=== PATIENT | female | born 2000 | race Caucasian/White ===

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

== ENCOUNTER 2018-03-05 17:25 | Emergency (ER) | payer MEDICAID ==
[~2018-03-05] VITALS: Ht 157.5 cm; Wt 120.0 kg
[2018-03-05 17:36] VITALS: Ht 157.5 cm; Wt 120.0 kg
[2018-03-05] MEDS ORDERED: VOLTAREN75 MG PO (18:13)
[2018-03-05 19:16] VITALS: BP 137/90
== END 2018-03-05 19:17 | disposition home or self-care (01) ==
LOC: D.ER 17:25
DX: L03.311 Cellulitis of abdominal wall (principal); I10 Essential (primary) hypertension; F17.200 Nicotine dependence, unspecified, uncomplicated

== ENCOUNTER 2018-03-27 15:45 | Emergency (ER) | payer MEDICAID ==
[~2018-03-27] VITALS: Ht 157.5 cm; Wt 121.8 kg
[~2018-03-27 15:45] MED LIST: VOLTAREN75 MG PO
[2018-03-27 15:49] VITALS: Ht 157.5 cm; Wt 121.8 kg
[2018-03-27 16:31] LABS: BASOPHILS 0.1 % (0-2); EOSINOPHILS 1.5 % (0-7); HEMATOCRIT 40.5 % (36.0-48.0); HEMOGLOBIN 13.8 g/dL (12-16); IMMATURE GRANULOCYTES 0.2 % (0-5); LYMPHOCYTES 12.2 % (15-50); MCH 28.8 pg (26.0-34.0); MCHC 34.1 g/dL (31.0-37.0); MCV 84.4 fL (80.0-100.0); MEAN PLATELET VOLUME 10.7 fL (7.4-10.4); MONOCYTES 1.9 % (2-11); NEUTROPHILS 84.1 % (40-80); PLATELET COUNT 283 10x3/uL (130-400); RDW 13.4 % (11.5-14.5); WBC 12.3 10x3/uL (4.8-10.8)
[2018-03-27 16:45] LABS: ALBUMIN 3.4 g/dL (3.4-5.0); ALKALINE PHOSPHATASE 94 U/L (46-116); ALT (SGPT) 27 U/L (10-68); BILIRUBIN - TOTAL 0.17 mg/dL (0.2-1.3); CALC OSMOLALITY 280 mosm/kg (275-300); CALCIUM 8.5 mg/dL (8.5-10.1); CARBON DIOXIDE 24.1 mmol/L (21.0-32.0); CHLORIDE - SERUM 104 mmol/L (98-107); CREATININE - SERUM 0.8 mg/dL (0.6-1.3); GLUCOSE 187 mg/dL (74-106); POTASSIUM - SERUM 3.9 mmol/L (3.5-5.1); PROTEIN - SERUM 7.4 g/dL (6.4-8.2); SODIUM 139 mmol/L (136-145); UREA NITROGEN 6 mg/dL (7-18); eGFR NON AFRICAN AMERICAN > 90 mL/min (90-120)
[2018-03-27] MEDS ORDERED: FLOVENT HFA 11012 GM INH (16:57)
[2018-03-27] MEDS ORDERED: VENTOLIN HFA18 GM INH (16:57)
[2018-03-27] MEDS ORDERED: ZITHROMAX TRI-500 MG PO (16:57)
[2018-03-27 17:11] VITALS: BP 140/71
== END 2018-03-27 17:17 | disposition home or self-care (01) ==
LOC: D.ER 15:45
PROVIDERS: Family Medicine
DX: J45.909 Unspecified asthma, uncomplicated (principal); R73.9 Hyperglycemia, unspecified; R05 Cough; I27.20 Pulmonary hypertension, unspecified; F17.200 Nicotine dependence, unspecified, uncomplicated

== ENCOUNTER 2018-06-03 20:06 | Emergency (ER) | payer MEDICARE ==
[~2018-06-03] VITALS: Ht 157.5 cm; Wt 114.5 kg
[~2018-06-03 20:06] MED LIST changes: +FLOVENT HFA 11012 GM INH; +VENTOLIN HFA18 GM INH; +ZITHROMAX TRI-500 MG PO
[2018-06-03 20:26] VITALS: Ht 157.5 cm; Wt 114.5 kg
[2018-06-03] MEDS ORDERED: ABILIFY10 MG PO (20:27)
[2018-06-03] MEDS ORDERED: ATARAX 25 MG TA25 MG PO (20:28)
[2018-06-03] MEDS ORDERED: LEXAPRO20 MG PO (20:28)
[2018-06-03] MEDS ORDERED: COREG6.25 MG PO (20:28)
[2018-06-03 21:07] LABS: BASOPHILS 0.3 % (0-2); EOSINOPHILS 2.5 % (0-7); HEMATOCRIT 40.2 % (36.0-48.0); HEMOGLOBIN 13.2 g/dL (12-16); IMMATURE GRANULOCYTES 0.3 % (0-5); LYMPHOCYTES 27.3 % (15-50); MCH 28.5 pg (26.0-34.0); MCHC 32.8 g/dL (31.0-37.0); MCV 86.8 fL (80.0-100.0); MEAN PLATELET VOLUME 10.4 fL (7.4-10.4); MONOCYTES 4.8 % (2-11); NEUTROPHILS 64.8 % (40-80); PLATELET COUNT 299 10x3/uL (130-400); RBC 4.63 10x6/uL (4.00-5.40); RDW 13.5 % (11.5-14.5); WBC 11.2 10x3/uL (4.8-10.8)
[2018-06-03 21:14] LABS: APTT 33.8 SECONDS (22.8-39.4); INR 1.05 (0.85-1.17); PROTIME 13.4 SECONDS (11.6-15.0)
[2018-06-03 21:20] LABS: ALBUMIN 3.6 g/dL (3.4-5.0); ALKALINE PHOSPHATASE 99 U/L (46-116); ALT (SGPT) 27 U/L (10-68); BILIRUBIN - TOTAL 0.15 mg/dL (0.2-1.3); CALC OSMOLALITY 275 mosm/kg (275-300); CALCIUM 9.3 mg/dL (8.5-10.1); CARBON DIOXIDE 28.3 mmol/L (21.0-32.0); CHLORIDE - SERUM 102 mmol/L (98-107); CREATININE - SERUM 0.7 mg/dL (0.6-1.3); GLUCOSE 99 mg/dL (74-106); POTASSIUM - SERUM 3.5 mmol/L (3.5-5.1); PROTEIN - SERUM 7.6 g/dL (6.4-8.2); SODIUM 139 mmol/L (136-145); UREA NITROGEN 7 mg/dL (7-18); eGFR NON AFRICAN AMERICAN > 90 mL/min (90-120)
[2018-06-03 21:31] LABS: CKMB 0.5 U/L (0.0-3.6); CREATINE KINASE 126 UL (21-215); MAGNESIUM - SERUM 2.1 mg/dL (1.8-2.4); TROPONIN-I < 0.017 ng/mL (0.000-0.060)
[2018-06-03 22:07] VITALS: BP 123/61
== END 2018-06-03 23:00 | disposition left against medical advice (07) ==
LOC: D.ER 20:06
PROVIDERS: Family Medicine
DX: R07.9 Chest pain, unspecified (principal); Z76.5 Malingerer [conscious simulation]; I10 Essential (primary) hypertension; F17.200 Nicotine dependence, unspecified, uncomplicated; R00.0 Tachycardia, unspecified

== ENCOUNTER 2018-06-07 00:51 | Emergency (ER) | payer MEDICARE ==
[~2018-06-07] VITALS: Ht 157.5 cm; Wt 90.9 kg
[~2018-06-07 00:51] MED LIST changes: +ABILIFY10 MG PO; +ATARAX 25 MG TA25 MG PO; +COREG6.25 MG PO; +LEXAPRO20 MG PO
[2018-06-07 01:08] VITALS: Ht 157.5 cm; Wt 90.9 kg
[2018-06-07 02:21] VITALS: BP 136/80
== END 2018-06-07 02:23 | disposition home or self-care (01) ==
LOC: D.ER 00:51
DX: F41.9 Anxiety disorder, unspecified (principal); Y04.2XXA Assault by strike against or bumped into by another person, initial encounter; Y93.89 Activity, other specified; Y92.89 Other specified places as the place of occurrence of the external cause; M79.602 Pain in left arm; M25.562 Pain in left knee; R00.0 Tachycardia, unspecified

== ENCOUNTER 2018-06-13 17:49 | Emergency (ER) | payer MEDICARE ==
[~2018-06-13] VITALS: Ht 157.5 cm; Wt 111.1 kg
[2018-06-13 17:53] VITALS: Ht 157.5 cm; Wt 111.1 kg
[2018-06-13 19:12] LABS: BASOPHILS 0.3 % (0-2); EOSINOPHILS 3.2 % (0-7); HEMATOCRIT 42.1 % (36.0-48.0); IMMATURE GRANULOCYTES 0.2 % (0-5); LYMPHOCYTES 22.8 % (15-50); MCH 28.6 pg (26.0-34.0); MCHC 33.3 g/dL (31.0-37.0); MCV 85.9 fL (80.0-100.0); MEAN PLATELET VOLUME 10.9 fL (7.4-10.4); MONOCYTES 3.9 % (2-11); NEUTROPHILS 69.6 % (40-80); PLATELET COUNT 312 10x3/uL (130-400); RDW 13.4 % (11.5-14.5); WBC 10.8 10x3/uL (4.8-10.8)
[2018-06-13] MEDS ORDERED: COREG6.25 MG PO (19:18)
[2018-06-13 20:11] LABS: CALC OSMOLALITY 277 mosm/kg (275-300); CALCIUM 9.3 mg/dL (8.5-10.1); CARBON DIOXIDE 26.5 mmol/L (21.0-32.0); CHLORIDE - SERUM 103 mmol/L (98-107); CKMB 0.4 U/L (0.0-3.6); CREATINE KINASE 85 UL (21-215); CREATININE - SERUM 0.8 mg/dL (0.6-1.3); GLUCOSE 107 mg/dL (74-106); POTASSIUM - SERUM 3.5 mmol/L (3.5-5.1); SODIUM 140 mmol/L (136-145); UREA NITROGEN 9 mg/dL (7-18); eGFR NON AFRICAN AMERICAN > 90 mL/min (90-120)
[2018-06-13 20:13] LABS: TROPONIN-I < 0.017 ng/mL (0.000-0.060)
[2018-06-13 20:20] VITALS: BP 127/68
== END 2018-06-13 20:20 | disposition home or self-care (01) ==
LOC: D.ER 17:49
PROVIDERS: Family Medicine
DX: I27.20 Pulmonary hypertension, unspecified (principal)

== ENCOUNTER 2018-06-26 14:04 | Emergency (ER) | payer MEDICARE | END 2018-06-26 14:30 | disposition left against medical advice (07) | LOC: D.ER 14:04 | DX: T62.91XA Toxic effect of unspecified noxious substance eaten as food, accidental (unintentional), initial encounter (principal); X58.XXXA Exposure to other specified factors, initial encounter ==

== ENCOUNTER 2018-07-24 15:27 | Emergency (ER) | payer MEDICARE ==
[~2018-07-24] VITALS: Ht 157.5 cm; Wt 111.4 kg
[2018-07-24 15:41] VITALS: Ht 157.5 cm; Wt 111.4 kg
[2018-07-24] MEDS ORDERED: TORADOL10 MG PO (19:33)
[2018-07-24 20:15] VITALS: BP 137/66
== END 2018-07-24 20:15 | disposition home or self-care (01) ==
LOC: D.ER 15:27
DX: S83.8X2A Sprain of other specified parts of left knee, initial encounter (principal); X58.XXXA Exposure to other specified factors, initial encounter; Y93.89 Activity, other specified; Y92.89 Other specified places as the place of occurrence of the external cause

== ENCOUNTER → 2018-08-01 12:37 | Outpatient (CLI) | payer MEDICARE ==
[2018-07-24 15:41] VITALS: BMI 44.9
[~2018-08-01 12:37] MED LIST changes: +TORADOL10 MG PO
== END | disposition home or self-care (01) ==
LOC: D.MRI 12:37
DX: M25.562 Pain in left knee (principal)

== ENCOUNTER 2018-09-01 05:16 | Emergency (ER) | payer MEDICARE ==
[~2018-09-01] VITALS: Ht 157.5 cm; Wt 111.4 kg
[2018-09-01 05:21] VITALS: Ht 157.5 cm; Wt 111.4 kg
[2018-09-01] MEDS ORDERED: LOPRESSOR25 MG PO (05:22)
[2018-09-01] MEDS ORDERED: ABILIFY10 MG PO (05:22)
[2018-09-01 08:37] VITALS: BP 116/84
== END 2018-09-01 08:38 | disposition home or self-care (01) ==
LOC: D.ER 05:16
DX: T78.1XXA Other adverse food reactions, not elsewhere classified, initial encounter (principal); X58.XXXA Exposure to other specified factors, initial encounter; I10 Essential (primary) hypertension; F17.200 Nicotine dependence, unspecified, uncomplicated

== ENCOUNTER 2018-11-03 06:30 | Day surgery (SDC) | payer MEDICARE ==
[2018-10-31 09:08] LABS: BASOPHILS 0.3 % (0-2); HEMATOCRIT 39.3 % (36.0-48.0); HEMOGLOBIN 13.4 g/dL (12-16); IMMATURE GRANULOCYTES 0.3 % (0-5); LYMPHOCYTES 31.2 % (15-50); MCH 28.4 pg (26.0-34.0); MCHC 34.1 g/dL (31.0-37.0); MCV 83.3 fL (80.0-100.0); MEAN PLATELET VOLUME 9.9 fL (7.4-10.4); MONOCYTES 5.8 % (2-11); NEUTROPHILS 59.4 % (40-80); PLATELET COUNT 315 10x3/uL (130-400); RBC 4.72 10x6/uL (4.00-5.40); RDW 13.7 % (11.5-14.5); WBC 9.8 10x3/uL (4.8-10.8)
[2018-10-31 09:20] LABS: CALC OSMOLALITY 277 mosm/kg (275-300); CARBON DIOXIDE 26.2 mmol/L (21.0-32.0); CHLORIDE - SERUM 104 mmol/L (98-107); CREATININE - SERUM 0.7 mg/dL (0.6-1.3); GLUCOSE 78 mg/dL (74-106); POTASSIUM - SERUM 4.1 mmol/L (3.5-5.1); SODIUM 139 mmol/L (136-145); UREA NITROGEN 14 mg/dL (7-18); eGFR NON AFRICAN AMERICAN > 90 mL/min (90-120)
[~2018-11-03] VITALS: Ht 157.5 cm; Wt 109.8 kg
[~2018-11-03 06:30] MED LIST changes: +CLARITIN 10 MG10 MG PO; +DULERA 100 MCG8.8 GM INH; +LOPRESSOR25 MG PO
[2018-11-03 08:26] LABS: HCG URINE NEGATIVE (NEGATIVE)
[2018-11-03 08:32] VITALS: BP 126/70; Ht 157.5 cm; Wt 109.8 kg
--- NOTE | 2018-11-03 12:33 | NUR ---
FIRE SAFETY ASSESSMENT :1
[2018-11-03] MEDS ORDERED: HYDROCODON-ACE1 EAC2 PO (16:14)
--- NOTE | 2018-11-03 16:20 | NUR ---
PATIENT AMBULATES TO BATHROOM WITH WALKER, MAINTAINING TOUCH-TOE WEIGHT BEARING STATUS. DENIES DIZZINESS, NO UNSTEADINESS NOTED. VOIDS IN TOILET WITHOUT DIFFICULTY. RIGHT WRIST PIV DC'D WITH TIP INTACT, PATIENT DRESSING IN PERSONAL CLOTHING WITH ASSISTANCE
--- NOTE | 2018-11-03 16:45 | NUR ---
DISCHARGE INSTRUCTIONS REVIEWED WITH PATIENT AND MOTHER, DISCHARGED HOME VIA WHEELCHAIR TO PRIVATE VEHICLE WITH MOTHER
== END 2018-11-03 16:45 | disposition home or self-care (01) ==
LOC: D.OPS 06:30 → D.PAN 07:30 → D.OPS 08:30
PROVIDERS: ATTEND Orthopaedic Surgery
DX: M92.8 Other specified juvenile osteochondrosis (principal); M23.42 Loose body in knee, left knee; S83.012A Lateral subluxation of left patella, initial encounter; X58.XXXA Exposure to other specified factors, initial encounter; M65.862 Other synovitis and tenosynovitis, left lower leg; M94.262 Chondromalacia, left knee; Z01.812 Encounter for preprocedural laboratory examination

== ENCOUNTER 2018-11-03 23:58 | Emergency (ER) | payer MEDICARE ==
[~2018-11-03] VITALS: Ht 157.5 cm; Wt 104.5 kg
[~2018-11-03 23:58] MED LIST changes: +HYDROCODON-ACE1 EAC2 PO
[2018-11-04 00:02] VITALS: Ht 157.5 cm; Wt 104.5 kg
[2018-11-04 01:15] VITALS: BP 140/71
== END 2018-11-04 01:15 | disposition home or self-care (01) ==
LOC: D.ER 23:58
DX: M25.562 Pain in left knee (principal)

== ENCOUNTER 2018-11-10 23:04 | Emergency (ER) | payer MEDICARE ==
[~2018-11-10] VITALS: Ht 157.5 cm; Wt 109.1 kg
[2018-11-10 23:06] VITALS: Ht 157.5 cm; Wt 109.1 kg
[2018-11-10] MEDS ORDERED: HYDROCODON-ACE1 EAC2 PO (23:41)
[2018-11-11 00:25] VITALS: BP 119/61
== END 2018-11-11 00:25 | disposition home or self-care (01) ==
LOC: D.ER 23:04
DX: M96.89 Other intraoperative and postprocedural complications and disorders of the musculoskeletal system (principal)

== ENCOUNTER 2018-11-29 03:49 | Emergency (ER) | payer MEDICARE ==
[~2018-11-29] VITALS: Ht 157.5 cm; Wt 109.1 kg
[2018-11-29 03:53] VITALS: Ht 157.5 cm; Wt 109.1 kg
[2018-11-29] MEDS ORDERED: LEXAPRO20 MG PO (03:55)
[2018-11-29 04:17] LABS: APPEARANCE CLEAR (CLEAR); BILIRUBIN NEGATIVE (NEGATIVE); COLOR YELLOW (YELLOW); GLUCOSE NEGATIVE (NEGATIVE); HCG URINE NEGATIVE (NEGATIVE); KETONE SMALL mg/dL (NEGATIVE); NITRITE NEGATIVE (NEGATIVE); PROTEIN NEGATIVE (NEGATIVE); UROBILINOGEN NORMAL (NORMAL)
[2018-11-29 05:20] LABS: ALBUMIN 3.3 g/dL (3.4-5.0); ALKALINE PHOSPHATASE 100 U/L (46-116); ALT (SGPT) 19 U/L (10-68); AMYLASE - SERUM 43 U/L (25-115); BILIRUBIN - TOTAL 0.09 mg/dL (0.2-1.3); CALC OSMOLALITY 278 mosm/kg (275-300); CALCIUM 8.6 mg/dL (8.5-10.1); CARBON DIOXIDE 28.9 mmol/L (21.0-32.0); CHLORIDE - SERUM 104 mmol/L (98-107); CREATININE - SERUM 0.8 mg/dL (0.6-1.3); GLUCOSE 90 mg/dL (74-106); LIPASE 97 U/L (73-393); POTASSIUM - SERUM 3.6 mmol/L (3.5-5.1); PROTEIN - SERUM 6.9 g/dL (6.4-8.2); SODIUM 139 mmol/L (136-145); UREA NITROGEN 15 mg/dL (7-18); eGFR NON AFRICAN AMERICAN > 90 mL/min (90-120)
[2018-11-29 05:25] LABS: BASOPHILS 0.2 % (0-2); EOSINOPHILS 2.8 % (0-7); HEMATOCRIT 36.2 % (36.0-48.0); HEMOGLOBIN 11.9 g/dL (12-16); IMMATURE GRANULOCYTES 0.3 % (0-5); MCH 27.9 pg (26.0-34.0); MCHC 32.9 g/dL (31.0-37.0); MEAN PLATELET VOLUME 10.2 fL (7.4-10.4); MONOCYTES 5.7 % (2-11); PLATELET COUNT 331 10x3/uL (130-400); RBC 4.26 10x6/uL (4.00-5.40); RDW 13.6 % (11.5-14.5); WBC 11.6 10x3/uL (4.8-10.8)
[2018-11-29 06:12] VITALS: BP 121/71
[2018-11-29] MEDS ORDERED: NAPROSYN500 MG PO (06:36)
== END 2018-11-29 06:42 | disposition home or self-care (01) ==
LOC: D.ER 03:49
PROVIDERS: Family Medicine
DX: R10.9 Unspecified abdominal pain (principal); N94.6 Dysmenorrhea, unspecified; N92.6 Irregular menstruation, unspecified

== ENCOUNTER 2018-12-17 03:51 | Emergency (ER) | payer MEDICARE ==
[~2018-12-17 03:51] MED LIST changes: +NAPROSYN500 MG PO
[2018-12-17 03:57] VITALS: BMI 42.1
[2018-12-17 04:16] LABS: BASOPHILS 0.4 % (0-2); EOSINOPHILS 2.8 % (0-7); HEMATOCRIT 37.4 % (36.0-48.0); HEMOGLOBIN 12.3 g/dL (12-16); IMMATURE GRANULOCYTES 0.2 % (0-5); LYMPHOCYTES 36.4 % (15-50); MCH 27.8 pg (26.0-34.0); MCHC 32.9 g/dL (31.0-37.0); MCV 84.6 fL (80.0-100.0); MEAN PLATELET VOLUME 9.8 fL (7.4-10.4); MONOCYTES 5.7 % (2-11); NEUTROPHILS 54.5 % (40-80); PLATELET COUNT 292 10x3/uL (130-400); RBC 4.42 10x6/uL (4.00-5.40); RDW 13.9 % (11.5-14.5); WBC 9.9 10x3/uL (4.8-10.8)
[2018-12-17 04:24] LABS: HCG SERUM NEGATIVE (NEGATIVE)
[2018-12-17 04:30] LABS: ALBUMIN 3.4 g/dL (3.4-5.0); ALKALINE PHOSPHATASE 106 U/L (46-116); ALT (SGPT) 20 U/L (10-68); CALC OSMOLALITY 281 mosm/kg (275-300); CALCIUM 8.6 mg/dL (8.5-10.1); CARBON DIOXIDE 27.4 mmol/L (21.0-32.0); CHLORIDE - SERUM 104 mmol/L (98-107); CREATININE - SERUM 0.6 mg/dL (0.6-1.3); GLUCOSE 128 mg/dL (74-106); POTASSIUM - SERUM 3.7 mmol/L (3.5-5.1); PROTEIN - SERUM 7.3 g/dL (6.4-8.2); SODIUM 140 mmol/L (136-145); UREA NITROGEN 15 mg/dL (7-18); eGFR NON AFRICAN AMERICAN > 90 mL/min (90-120)
[2018-12-17] MEDS ORDERED: TRANEXAMIC ACI650 MG PO (05:19)
[2018-12-17 05:55] VITALS: BP 141/97
[2018-12-18] MEDS ORDERED: LOPRESSOR25 MG PO (21:54)
== END 2018-12-17 05:56 | disposition home or self-care (01) ==
LOC: D.ER 03:51
PROVIDERS: Family Medicine
DX: N93.8 Other specified abnormal uterine and vaginal bleeding (principal)

== ENCOUNTER 2018-12-18 20:19 | Emergency (ER) | payer MEDICARE ==
[~2018-12-18 20:19] MED LIST changes: +TRANEXAMIC ACI650 MG PO
[2018-12-18 20:25] VITALS: BMI 42.1
--- NOTE | 2018-12-18 21:12 | NUR ---
DR ROMERO NOTIFIED AND REVIEWED PT's BEHAVIOR AND ASSESSMENT RESULTS, PT IS A LW RISK PER DR ROMERO. DR ROMERO STATED TO GIVE RESOURCES TO PT AT TIME OF DISCHARGE. NO FURTHER ORDERS AT THIS TIME, RESOURCES REVIEWED WITH PT AND SHE VERBALIZED UNDERSTANDING.
[2018-12-18 21:20] LABS: ALBUMIN 3.3 g/dL (3.4-5.0); ALKALINE PHOSPHATASE 102 U/L (46-116); ALT (SGPT) 16 U/L (10-68); BILIRUBIN - TOTAL 0.11 mg/dL (0.2-1.3); CALC OSMOLALITY 278 mosm/kg (275-300); CALCIUM 8.4 mg/dL (8.5-10.1); CARBON DIOXIDE 26.7 mmol/L (21.0-32.0); CHLORIDE - SERUM 104 mmol/L (98-107); CREATININE - SERUM 0.7 mg/dL (0.6-1.3); GLUCOSE 101 mg/dL (74-106); POTASSIUM - SERUM 3.5 mmol/L (3.5-5.1); SODIUM 140 mmol/L (136-145); UREA NITROGEN 12 mg/dL (7-18); eGFR NON AFRICAN AMERICAN > 90 mL/min (90-120)
[2018-12-18 21:31] LABS: CKMB 0.6 U/L (0.0-3.6); CREATINE KINASE 97 UL (21-215); MAGNESIUM - SERUM 1.7 mg/dL (1.8-2.4); PRO BNP 185 pg/mL (0-125); TROPONIN-I < 0.017 ng/mL (0.000-0.060)
[2018-12-18 21:32] LABS: INR 1.08 (0.85-1.17); PROTIME 13.5 SECONDS (11.6-15.0)
[2018-12-18 21:35] LABS: BASOPHILS 0.3 % (0-2); EOSINOPHILS 2.5 % (0-7); HEMATOCRIT 36.1 % (36.0-48.0); HEMOGLOBIN 11.9 g/dL (12-16); IMMATURE GRANULOCYTES 0.3 % (0-5); LYMPHOCYTES 29.2 % (15-50); MCH 28.1 pg (26.0-34.0); MCV 85.1 fL (80.0-100.0); MEAN PLATELET VOLUME 10.3 fL (7.4-10.4); MONOCYTES 5.5 % (2-11); NEUTROPHILS 62.2 % (40-80); PLATELET COUNT 301 10x3/uL (130-400); RBC 4.24 10x6/uL (4.00-5.40); WBC 10.8 10x3/uL (4.8-10.8)
[2018-12-18] MEDS ORDERED: LOPRESSOR25 MG PO (21:54)
[2018-12-18 22:13] VITALS: BP 138/86
== END 2018-12-18 22:09 | disposition home or self-care (01) ==
LOC: D.ER 20:19
PROVIDERS: Family Medicine
DX: I27.20 Pulmonary hypertension, unspecified (principal); J45.909 Unspecified asthma, uncomplicated; E66.01 Morbid (severe) obesity due to excess calories; F17.200 Nicotine dependence, unspecified, uncomplicated

== ENCOUNTER 2018-12-21 00:47 | Observation (INO) | payer MEDICARE ==
[2018-12-21 01:28] LABS: HEMATOCRIT 36.1 % (36.0-48.0); HEMOGLOBIN 12.4 g/dL (12-16); MCH 28.9 pg (26.0-34.0); MCHC 34.3 g/dL (31.0-37.0); MCV 84.1 fL (80.0-100.0); MEAN PLATELET VOLUME 9.2 fL (7.4-10.4); PLATELET COUNT 283 10x3/uL (130-400); RBC 4.29 10x6/uL (4.00-5.40); RDW 13.3 % (11.5-14.5); WBC 9.7 10x3/uL (4.8-10.8)
--- NOTE | 2018-12-21 01:52 | NUR ---
ATTEMPTED TO CALL REPORT BUT NO ANWSER ON MED II
[2018-12-21 01:59] LABS: ALBUMIN 3.6 g/dL (3.4-5.0); ALKALINE PHOSPHATASE 103 U/L (46-116); ALT (SGPT) 18 U/L (10-68); BILIRUBIN - TOTAL 0.12 mg/dL (0.2-1.3); CALC OSMOLALITY 279 mosm/kg (275-300); CALCIUM 8.7 mg/dL (8.5-10.1); CARBON DIOXIDE 29.6 mmol/L (21.0-32.0); CHLORIDE - SERUM 103 mmol/L (98-107); CREATININE - SERUM 0.7 mg/dL (0.6-1.3); GLUCOSE 107 mg/dL (74-106); POTASSIUM - SERUM 3.5 mmol/L (3.5-5.1); PROTEIN - SERUM 7.5 g/dL (6.4-8.2); SODIUM 141 mmol/L (136-145); UREA NITROGEN 9 mg/dL (7-18); eGFR NON AFRICAN AMERICAN > 90 mL/min (90-120)
--- NOTE | 2018-12-21 02:10 | NUR ---
RECIEVED TOROOM 2108 FROM ER VIA WC. PT A&O. RESPERATIONS EVEN ON RA. IV TO LEFT AC, SL SITE CLEAN AND DRY. PLACED ON TELEMETRY, 80 SR PER MT. HISTORY AND MED REC OBTAINED. PT CURRENTLY DENIES PAIN OR NEEDS, BED LOW, CL IN REACH.
[2018-12-21 03:22] VITALS: BP 125/80; BMI 46.0
[2018-12-21 04:00] VITALS: BP 125/80
[2018-12-21 07:56] VITALS: BP 118/40
[2018-12-21 12:19] VITALS: BMI 46.0
[2018-12-21] MEDS ORDERED: EPIPEN 2-P0.3 MG/0.3 IM (12:20)
[2018-12-21 12:53] VITALS: BP 122/56
--- NOTE | 2018-12-21 14:43 | NUR ---
DISCHARGE INSTRUCTIONS REVIEWED WITH PT AND ALL QUESTIONS ASWERED. PIV REMOVED WITH CATHETER TIP INTACT. TELEMETRY REMOVED AND GIVEN TO SUPERIOR COURT JUSTICE. PT TAKEN TO FRONT VIA WHEELCHAIR. PT LEFT WITH MOM
--- NOTE | 2018-12-21 15:31 | MORECARE ---
CASE MANAGEMENT DISCHARGE SUMMARY PATIENT: HAMZAH PETERSON UNIT: [id number] ADM DATE: 12/21/18 AGE: 18 : [birth year] SEX: F ROOM/BED: D.2108 AUTHOR: GISELA DAVIDSON PHYSICIAN: REFERRING PHYSICIAN: DANIELLE MARCANO MD DATE OF SERVICE: 12/21/18 Discharge Plan Patient Name: HAMZAH PETERSON Facility: [facility]:[place] : 2000 Planned Disposition: Home Anticipated Discharge Date: 12/21/18 Discharge Date: 12/21/2018 Expected LOS: 1 Initial Reviewer: [email or web address] Initial Review Date: 12/21/2018 Generated: 12/21/18 4:30 pm Patient Name: HAMZAH PETERSON Page [id number] at 1531 All edits/amendments must be made on the electronic document DICTATION DATE: 12/21/18 1530 QUALITY PROCESS ENGINEER: JOANN 12/21/18 1530 RPT#: [id number] DC DATE:12/21/18 STATUS: DIS IN [facility] [address] [place] [address] END OF REPORT
== END 2018-12-21 14:45 | disposition home or self-care (01) ==
LOC: D.ER 00:47 → D.M2 01:06 → OBSVTIME 01:06 → D.M2 14:45
PROVIDERS: Family Medicine; ADMIT Internal Medicine Nephrology; ATTEND Internal Medicine Nephrology
DX: T78.05XA Anaphylactic reaction due to tree nuts and seeds, initial encounter (principal); I27.20 Pulmonary hypertension, unspecified; F31.9 Bipolar disorder, unspecified; F17.213 Nicotine dependence, cigarettes, with withdrawal

== ENCOUNTER 2018-12-27 23:25 | Emergency (ER) | payer MEDICARE ==
[~2018-12-27] VITALS: Ht 157.5 cm; Wt 104.5 kg
[~2018-12-27 23:25] MED LIST changes: +EPIPEN 2-P0.3 MG/0.3 IM
[2018-12-27 23:32] VITALS: Ht 157.5 cm; Wt 104.5 kg
[2018-12-27 23:57] LABS: HCG URINE NEGATIVE (NEGATIVE)
[2018-12-28 01:20] VITALS: BP 130/72
== END 2018-12-28 01:20 | disposition home or self-care (01) ==
LOC: D.ER 23:25
PROVIDERS: Family Medicine
DX: M25.562 Pain in left knee (principal); X58.XXXA Exposure to other specified factors, initial encounter; Y93.89 Activity, other specified; Y92.89 Other specified places as the place of occurrence of the external cause; Z32.02 Encounter for pregnancy test, result negative

== ENCOUNTER 2019-01-06 00:13 | Emergency (ER) | payer MEDICARE ==
[2019-01-06 00:18] VITALS: BMI 44.0
[2019-01-06 00:45] LABS: APPEARANCE CLEAR (CLEAR); BILIRUBIN NEGATIVE (NEGATIVE); COLOR YELLOW (YELLOW); GLUCOSE NEGATIVE (NEGATIVE); HCG URINE NEGATIVE (NEGATIVE); KETONE SMALL mg/dL (NEGATIVE); NITRITE NEGATIVE (NEGATIVE); PROTEIN NEGATIVE (NEGATIVE); UROBILINOGEN NORMAL (NORMAL)
[2019-01-06] MEDS ORDERED: GAS-X180 MG PO (01:56)
[2019-01-06] MEDS ORDERED: DOXYCYCLINE HY100 M2 PO (02:00)
[2019-01-06 02:43] VITALS: BP 120/70
[2019-01-09 15:11] LABS: CHLAMYDIA TRACHOMATIS, NAA Negative (Negative)
== END 2019-01-06 02:45 | disposition home or self-care (01) ==
LOC: D.ER 00:13
PROVIDERS: Emergency Medicine
DX: R10.30 Lower abdominal pain, unspecified (principal); A64 Unspecified sexually transmitted disease; R14.0 Abdominal distension (gaseous)

== ENCOUNTER → 2019-01-08 | Emergency (ER) | payer MEDICARE ==
[~2019-01-08] VITALS: Ht 157.5 cm; Wt 109.1 kg
[~2019-01-08] MED LIST changes: +DOXYCYCLINE HY100 M2 PO; +GAS-X180 MG PO
[2019-01-08 04:44] VITALS: Ht 157.5 cm; Wt 109.1 kg
[2019-01-08 05:00] LABS: BASOPHILS 0.2 % (0-2); EOSINOPHILS 2.8 % (0-7); HEMATOCRIT 36.4 % (36.0-48.0); HEMOGLOBIN 12.1 g/dL (12-16); IMMATURE GRANULOCYTES 0.3 % (0-5); MCHC 33.2 g/dL (31.0-37.0); MCV 84.3 fL (80.0-100.0); MEAN PLATELET VOLUME 10.2 fL (7.4-10.4); MONOCYTES 5.3 % (2-11); NEUTROPHILS 62.4 % (40-80); PLATELET COUNT 240 10x3/uL (130-400); RBC 4.32 10x6/uL (4.00-5.40); RDW 13.9 % (11.5-14.5); WBC 10.9 10x3/uL (4.8-10.8)
[2019-01-08 05:14] LABS: ALBUMIN 3.3 g/dL (3.4-5.0); ALKALINE PHOSPHATASE 94 U/L (46-116); ALT (SGPT) 21 U/L (10-68); BILIRUBIN - TOTAL 0.14 mg/dL (0.2-1.3); CALC OSMOLALITY 278 mosm/kg (275-300); CALCIUM 8.5 mg/dL (8.5-10.1); CARBON DIOXIDE 23.4 mmol/L (21.0-32.0); CHLORIDE - SERUM 105 mmol/L (98-107); CREATININE - SERUM 0.6 mg/dL (0.6-1.3); GLUCOSE 139 mg/dL (74-106); POTASSIUM - SERUM 3.6 mmol/L (3.5-5.1); PROTEIN - SERUM 6.9 g/dL (6.4-8.2); SODIUM 139 mmol/L (136-145); UREA NITROGEN 10 mg/dL (7-18); eGFR NON AFRICAN AMERICAN > 90 mL/min (90-120)
[2019-01-08 05:26] LABS: MAGNESIUM - SERUM 1.8 mg/dL (1.8-2.4); PRO BNP 20 pg/mL (0-125); THYROID STIMULATING HORMONE 3.48 uIU/mL (0.36-3.74)
[2019-01-08 05:30] LABS: TROPONIN-I < 0.017 ng/mL (0.000-0.060)
[2019-01-08 05:47] LABS: HCG SERUM NEGATIVE (NEGATIVE)
[2019-01-08 05:50] VITALS: BP 131/70
[2019-01-08 06:42] LABS: UDS - AMPHET NEGATIVE QUAL (NEGATIVE); UDS - BARB NEGATIVE QUAL (NEGATIVE); UDS - BENZO NEGATIVE QUAL (NEGATIVE); UDS - COCAINE NEGATIVE QUAL (NEGATIVE); UDS - OPIATE NEGATIVE QUAL (NEGATIVE); UDS - PCP NEGATIVE QUAL (NEGATIVE); UDS - THC NEGATIVE QUAL (NEGATIVE)
[2019-01-08 06:43] LABS: HCG URINE NEGATIVE (NEGATIVE)
[2019-01-08 06:48] LABS: APPEARANCE CLEAR (CLEAR); BILIRUBIN NEGATIVE (NEGATIVE); COLOR STRAW (YELLOW); GLUCOSE NEGATIVE (NEGATIVE); KETONE NEGATIVE (NEGATIVE); NITRITE NEGATIVE (NEGATIVE); PROTEIN NEGATIVE (NEGATIVE); SPECIFIC GRAVITY 1.015 (1.005-1.020); UROBILINOGEN NORMAL (NORMAL)
== END ==
LOC: D.ER 04:39
PROVIDERS: Family Medicine
DX: R07.89 Other chest pain (principal); R00.2 Palpitations; I27.20 Pulmonary hypertension, unspecified; F17.210 Nicotine dependence, cigarettes, uncomplicated

== ENCOUNTER 2019-02-05 00:52 | Emergency (ER) | payer MEDICARE ==
[~2019-02-05] VITALS: Ht 157.5 cm; Wt 114.3 kg
[2019-02-05 01:07] VITALS: BP 156/81; Ht 157.5 cm; Wt 114.3 kg
[2019-02-05] MEDS ORDERED: BREO ELLIPTA 11 EACH INH (01:10)
[2019-02-05] MEDS ORDERED: ZOVIRAX400 MG PO (01:11)
== END 2019-02-05 01:30 | disposition left against medical advice (07) ==
LOC: D.ER 00:52
DX: R51 Headache (principal)

== ENCOUNTER 2019-02-09 20:30 | Emergency (ER) | payer MEDICARE ==
[~2019-02-09] VITALS: Ht 157.5 cm; Wt 114.5 kg
[~2019-02-09 20:30] MED LIST changes: +BREO ELLIPTA 11 EACH INH; +ZOVIRAX400 MG PO
[2019-02-09 20:52] VITALS: Ht 157.5 cm; Wt 114.5 kg
[2019-02-09 21:27] LABS: APPEARANCE CLEAR (CLEAR); BILIRUBIN NEGATIVE (NEGATIVE); COLOR STRAW (YELLOW); GLUCOSE NEGATIVE (NEGATIVE); KETONE NEGATIVE (NEGATIVE); NITRITE NEGATIVE (NEGATIVE); PROTEIN 1+ mg/dL (NEGATIVE); SPECIFIC GRAVITY 1.005 (1.005-1.020); UROBILINOGEN NORMAL (NORMAL)
[2019-02-09 21:28] LABS: EPITHELIAL CELLS 0-5 /hpf (0-5); RED CELLS - URINE >50 /hpf (0-5); WHITE CELLS - URINE 0-5 /hpf (0-5)
[2019-02-09 21:28] LABS: BASOPHILS 0.2 % (0-2); EOSINOPHILS 2.5 % (0-7); HEMATOCRIT 38.2 % (36.0-48.0); HEMOGLOBIN 12.8 g/dL (12-16); IMMATURE GRANULOCYTES 0.1 % (0-5); MCH 28.4 pg (26.0-34.0); MCHC 33.5 g/dL (31.0-37.0); MCV 84.7 fL (80.0-100.0); MEAN PLATELET VOLUME 9.9 fL (7.4-10.4); MONOCYTES 4.8 % (2-11); NEUTROPHILS 64.4 % (40-80); PLATELET COUNT 259 10x3/uL (130-400); RBC 4.51 10x6/uL (4.00-5.40); RDW 13.7 % (11.5-14.5); WBC 10.1 10x3/uL (4.8-10.8)
[2019-02-09 21:39] LABS: ALBUMIN 3.5 g/dL (3.4-5.0); ALKALINE PHOSPHATASE 101 U/L (46-116); ALT (SGPT) 18 U/L (10-68); BILIRUBIN - TOTAL 0.15 mg/dL (0.2-1.3); CALC OSMOLALITY 278 mosm/kg (275-300); CALCIUM 8.4 mg/dL (8.5-10.1); CARBON DIOXIDE 26.8 mmol/L (21.0-32.0); CHLORIDE - SERUM 103 mmol/L (98-107); CREATININE - SERUM 0.9 mg/dL (0.6-1.3); POTASSIUM - SERUM 3.8 mmol/L (3.5-5.1); PROTEIN - SERUM 7.4 g/dL (6.4-8.2); SODIUM 140 mmol/L (136-145); UREA NITROGEN 14 mg/dL (7-18); eGFR NON AFRICAN AMERICAN 85 mL/min (90-120)
[2019-02-09 21:41] LABS: GLUCOSE 82 mg/dL (74-106); HCG SERUM NEGATIVE (NEGATIVE)
[2019-02-09 22:12] VITALS: BP 138/62
== END 2019-02-09 22:13 | disposition home or self-care (01) ==
LOC: D.ER 20:30
PROVIDERS: Family Medicine
DX: N93.8 Other specified abnormal uterine and vaginal bleeding (principal)

== ENCOUNTER 2019-06-10 19:17 | Emergency (ER) | payer MEDICARE ==
[~2019-06-10] VITALS: Ht 157.5 cm; Wt 113.6 kg
[2019-06-10 19:23] VITALS: Ht 157.5 cm; Wt 113.6 kg
[2019-06-10 20:49] VITALS: BP 125/78
--- NOTE | 2019-06-10 22:54 | NUR ---
DR ROMERO NOTIFIED AND REVIEWED PT'S BEHAVIOR AND ASSESSMENT RESULTS. PT IS A LOW RISK PER DR ROMERO. DR ROMERO STATED TO GIVE RESOURCES TO PT AT TIME OF DISCHARGE. NO FURTHER ORDERS AT THIS TIME. RESOURCES REVOEWED WITH PT AND SHE VERBALIZED UNDERSTANDING.
== END 2019-06-10 20:51 | disposition home or self-care (01) ==
LOC: D.ER 19:17
DX: M25.562 Pain in left knee (principal); Z98.890 Other specified postprocedural states

== ENCOUNTER 2019-06-25 20:22 | Emergency (ER) | payer MEDICARE ==
[~2019-06-25] VITALS: Ht 157.5 cm; Wt 114.8 kg
[2019-06-25 20:24] VITALS: Ht 157.5 cm; Wt 114.8 kg
[2019-06-25 21:12] VITALS: BP 111/62
== END 2019-06-25 21:13 | disposition home or self-care (01) ==
LOC: D.ER 20:22
DX: R00.0 Tachycardia, unspecified (principal); J45.909 Unspecified asthma, uncomplicated; I27.20 Pulmonary hypertension, unspecified

== ENCOUNTER 2019-07-23 21:21 | Emergency (ER) | payer MEDICARE ==
[~2019-07-23] VITALS: Ht 157.5 cm; Wt 115.7 kg
[2019-07-23 21:29] VITALS: Ht 157.5 cm; Wt 115.7 kg
[2019-07-23 22:19] LABS: BASOPHILS 0.2 % (0-2); EOSINOPHILS 1.7 % (0-7); HEMATOCRIT 37.9 % (36.0-48.0); HEMOGLOBIN 12.4 g/dL (12-16); IMMATURE GRANULOCYTES 0.3 % (0-5); MCH 28.2 pg (26.0-34.0); MCHC 32.7 g/dL (31.0-37.0); MCV 86.3 fL (80.0-100.0); MEAN PLATELET VOLUME 9.9 fL (7.4-10.4); MONOCYTES 5.7 % (2-11); NEUTROPHILS 58.1 % (40-80); PLATELET COUNT 303 10x3/uL (130-400); RBC 4.39 10x6/uL (4.00-5.40); RDW 13.5 % (11.5-14.5); WBC 11.7 10x3/uL (4.8-10.8)
[2019-07-23 22:23] LABS: APTT 30.5 SECONDS (22.8-39.4); INR 1.05 (0.85-1.17); PROTIME 13.2 SECONDS (11.6-15.0)
[2019-07-23 22:26] LABS: CALC OSMOLALITY 279 mosm/kg (275-300); CALCIUM 8.3 mg/dL (8.5-10.1); CARBON DIOXIDE 25.3 mmol/L (21.0-32.0); CHLORIDE - SERUM 105 mmol/L (98-107); CREATININE - SERUM 0.7 mg/dL (0.6-1.3); GLUCOSE 97 mg/dL (74-106); POTASSIUM - SERUM 3.5 mmol/L (3.5-5.1); SODIUM 140 mmol/L (136-145); UREA NITROGEN 15 mg/dL (7-18); eGFR NON AFRICAN AMERICAN > 90 mL/min (90-120)
[2019-07-23 22:43] LABS: ALBUMIN 3.3 g/dL (3.4-5.0); ALKALINE PHOSPHATASE 95 U/L (46-116); ALT (SGPT) 18 U/L (10-68); BILIRUBIN - TOTAL 0.09 mg/dL (0.2-1.3); CKMB 1.1 U/L (0.0-3.6); CREATINE KINASE 87 UL (21-215); MAGNESIUM - SERUM 1.8 mg/dL (1.8-2.4); PROTEIN - SERUM 7.2 g/dL (6.4-8.2); TROPONIN-I < 0.017 ng/mL (0.000-0.060)
[2019-07-23 23:22] VITALS: BP 141/63
== END 2019-07-23 23:23 | disposition home or self-care (01) ==
LOC: D.ER 21:21
PROVIDERS: Family Medicine
DX: R00.2 Palpitations (principal); I27.20 Pulmonary hypertension, unspecified; J45.909 Unspecified asthma, uncomplicated; T38.0X5A Adverse effect of glucocorticoids and synthetic analogues, initial encounter

== ENCOUNTER 2019-09-11 01:52 | Emergency (ER) | payer MEDICARE ==
[~2019-09-11] VITALS: Ht 157.5 cm; Wt 113.4 kg
[2019-09-11 01:58] VITALS: Ht 157.5 cm; Wt 113.4 kg
[2019-09-11 02:36] LABS: BILIRUBIN NEGATIVE (NEGATIVE); GLUCOSE NEGATIVE (NEGATIVE); KETONE NEGATIVE (NEGATIVE); NITRITE NEGATIVE (NEGATIVE); UROBILINOGEN NORMAL (NORMAL)
[2019-09-11 02:37] LABS: BASOPHILS 0.2 % (0-2); EOSINOPHILS 2.8 % (0-7); HEMATOCRIT 41.9 % (36.0-48.0); HEMOGLOBIN 14.2 g/dL (12-16); IMMATURE GRANULOCYTES 0.2 % (0-5); LYMPHOCYTES 26.8 % (15-50); MCH 28.9 pg (26.0-34.0); MCHC 33.9 g/dL (31.0-37.0); MCV 85.3 fL (80.0-100.0); MEAN PLATELET VOLUME 9.8 fL (7.4-10.4); MONOCYTES 4.3 % (2-11); NEUTROPHILS 65.7 % (40-80); PLATELET COUNT 291 10x3/uL (130-400); RBC 4.91 10x6/uL (4.00-5.40); RDW 13.4 % (11.5-14.5); WBC 11.5 10x3/uL (4.8-10.8)
[2019-09-11 02:38] LABS: BACTERIA FEW /hpf (NEGATIVE); EPITHELIAL CELLS 0-5 /hpf (0-5); RED CELLS - URINE 0-5 /hpf (0-5); WHITE CELLS - URINE 0-5 /hpf (NEGATIVE)
[2019-09-11 02:47] LABS: CALC OSMOLALITY 278 mosm/kg (275-300); CALCIUM 8.7 mg/dL (8.5-10.1); CARBON DIOXIDE 23.8 mmol/L (21.0-32.0); CHLORIDE - SERUM 104 mmol/L (98-107); CREATININE - SERUM 0.8 mg/dL (0.6-1.3); GLUCOSE 118 mg/dL (74-106); POTASSIUM - SERUM 3.2 mmol/L (3.5-5.1); SODIUM 139 mmol/L (136-145); UREA NITROGEN 13 mg/dL (7-18); eGFR NON AFRICAN AMERICAN > 90 mL/min (90-120)
[2019-09-11 02:48] LABS: APTT 34.4 SECONDS (22.8-39.4); PROTIME 13.1 SECONDS (11.6-15.0)
[2019-09-11 02:49] LABS: D-DIMER-QUANTITATIVE 0.29 ug/mLFEU (0.20-0.54); HCG SERUM NEGATIVE (NEGATIVE)
[2019-09-11 03:04] LABS: ALBUMIN 3.6 g/dL (3.4-5.0); ALKALINE PHOSPHATASE 100 U/L (30-120); ALT (SGPT) 23 U/L (10-68); BILIRUBIN - TOTAL 0.16 mg/dL (0.2-1.3); CKMB 0.6 U/L (0.0-3.6); CREATINE KINASE 113 UL (21-215); PROTEIN - SERUM 7.9 g/dL (6.4-8.2)
[2019-09-11 03:06] LABS: TROPONIN-I < 0.017 ng/mL (0.000-0.060)
[2019-09-11 04:22] VITALS: BP 108/60
== END 2019-09-11 04:28 | disposition home or self-care (01) ==
LOC: D.ER 01:52
PROVIDERS: Family Medicine
DX: J20.9 Acute bronchitis, unspecified (principal); E87.6 Hypokalemia; R07.89 Other chest pain; Z72.0 Tobacco use; J45.909 Unspecified asthma, uncomplicated; I27.20 Pulmonary hypertension, unspecified

== ENCOUNTER 2019-09-17 17:59 | Emergency (ER) | payer MEDICARE ==
[~2019-09-17] VITALS: Ht 157.5 cm; Wt 115.5 kg
[~2019-09-17 17:59] MED LIST changes: +EFFEXOR75 MG PO; +LEVOFLOXACIN500 MG PO; +METOPROLOL TART50 MG PO
[2019-09-17 18:14] VITALS: Ht 157.5 cm; Wt 115.5 kg
[2019-09-17 18:45] LABS: BASOPHILS 0.2 % (0-2); EOSINOPHILS 3.6 % (0-7); HEMATOCRIT 40.8 % (36.0-48.0); HEMOGLOBIN 13.7 g/dL (12-16); IMMATURE GRANULOCYTES 0.2 % (0-5); LYMPHOCYTES 28.2 % (15-50); MCHC 33.6 g/dL (31.0-37.0); MCV 86.4 fL (80.0-100.0); MEAN PLATELET VOLUME 9.6 fL (7.4-10.4); MONOCYTES 3.4 % (2-11); NEUTROPHILS 64.4 % (40-80); PLATELET COUNT 285 10x3/uL (130-400); RBC 4.72 10x6/uL (4.00-5.40); RDW 13.3 % (11.5-14.5); WBC 10.5 10x3/uL (4.8-10.8)
[2019-09-17 18:54] LABS: APTT 32.1 SECONDS (22.8-39.4); INR 0.96 (0.85-1.17); PROTIME 12.7 SECONDS (11.6-15.0)
[2019-09-17 18:55] LABS: CALC OSMOLALITY 280 mosm/kg (275-300); CALCIUM 8.9 mg/dL (8.5-10.1); CARBON DIOXIDE 26.1 mmol/L (21.0-32.0); CHLORIDE - SERUM 104 mmol/L (98-107); CREATININE - SERUM 0.7 mg/dL (0.6-1.3); GLUCOSE 114 mg/dL (74-106); POTASSIUM - SERUM 3.5 mmol/L (3.5-5.1); SODIUM 141 mmol/L (136-145); UREA NITROGEN 11 mg/dL (7-18); eGFR NON AFRICAN AMERICAN > 90 mL/min (90-120)
[2019-09-17 19:11] LABS: ALBUMIN 3.7 g/dL (3.4-5.0); ALKALINE PHOSPHATASE 106 U/L (30-120); ALT (SGPT) 19 U/L (10-68); BILIRUBIN - TOTAL 0.24 mg/dL (0.2-1.3); CKMB 0.2 U/L (0.0-3.6); CREATINE KINASE 79 UL (21-215); MAGNESIUM - SERUM 1.9 mg/dL (1.8-2.4); PROTEIN - SERUM 7.7 g/dL (6.4-8.2)
[2019-09-17 19:12] LABS: TROPONIN-I < 0.017 ng/mL (0.000-0.060)
[2019-09-17] MEDS ORDERED: METHOCARBAMOL750 MG NG (20:50)
[2019-09-17] MEDS ORDERED: VOLTAREN75 MG PO (20:50)
[2019-09-17 21:25] VITALS: BP 121/62
== END 2019-09-17 21:28 | disposition home or self-care (01) ==
LOC: D.ER 17:59
PROVIDERS: Family Medicine
DX: R07.89 Other chest pain (principal); M25.512 Pain in left shoulder; J45.909 Unspecified asthma, uncomplicated; I27.20 Pulmonary hypertension, unspecified; Z72.0 Tobacco use

== ENCOUNTER 2019-12-14 01:31 | Emergency (ER) | payer MEDICARE ==
[~2019-12-14] VITALS: Ht 157.5 cm; Wt 111.4 kg
[~2019-12-14 01:31] MED LIST changes: +METHOCARBAMOL750 MG NG
[2019-12-14 01:36] VITALS: BP 145/75; Ht 157.5 cm; Wt 111.4 kg
[2019-12-14 02:10] LABS: BASOPHILS 0.3 % (0-2); EOSINOPHILS 2.8 % (0-7); HEMATOCRIT 39.8 % (36.0-48.0); HEMOGLOBIN 13.1 g/dL (12-16); IMMATURE GRANULOCYTES 0.3 % (0-5); LYMPHOCYTES 33.9 % (15-50); MCH 28.9 pg (26.0-34.0); MCHC 32.9 g/dL (31.0-37.0); MCV 87.9 fL (80.0-100.0); MEAN PLATELET VOLUME 9.6 fL (7.4-10.4); MONOCYTES 4.9 % (2-11); NEUTROPHILS 57.8 % (40-80); PLATELET COUNT 337 10x3/uL (130-400); RBC 4.53 10x6/uL (4.00-5.40); RDW 12.9 % (11.5-14.5); WBC 11.1 10x3/uL (4.8-10.8)
[2019-12-14 02:18] LABS: BILIRUBIN NEGATIVE (NEGATIVE); GLUCOSE NEGATIVE (NEGATIVE); KETONE NEGATIVE (NEGATIVE); NITRITE NEGATIVE (NEGATIVE); SPECIFIC GRAVITY 1.025 (1.005-1.020); UROBILINOGEN NORMAL (NORMAL)
[2019-12-14 02:19] LABS: EPITHELIAL CELLS 0-5 /hpf (0-5)
[2019-12-14 02:20] LABS: BACTERIA FEW /hpf (NEGATIVE)
[2019-12-14 02:23] LABS: CALC OSMOLALITY 274 mosm/kg (275-300); CALCIUM 8.9 mg/dL (8.5-10.1); CARBON DIOXIDE 26.2 mmol/L (21.0-32.0); CHLORIDE - SERUM 102 mmol/L (98-107); CREATININE - SERUM 0.9 mg/dL (0.6-1.3); GLUCOSE 123 mg/dL (74-106); POTASSIUM - SERUM 3.7 mmol/L (3.5-5.1); SODIUM 137 mmol/L (136-145); UREA NITROGEN 13 mg/dL (7-18); eGFR NON AFRICAN AMERICAN 84 mL/min (90-120)
[2019-12-14 02:27] LABS: UDS - AMPHET NEGATIVE QUAL (NEGATIVE); UDS - BARB NEGATIVE QUAL (NEGATIVE); UDS - BENZO NEGATIVE QUAL (NEGATIVE); UDS - COCAINE NEGATIVE QUAL (NEGATIVE); UDS - OPIATE NEGATIVE QUAL (NEGATIVE); UDS - PCP NEGATIVE QUAL (NEGATIVE); UDS - THC NEGATIVE QUAL (NEGATIVE)
[2019-12-14 02:32] LABS: ALBUMIN 3.5 g/dL (3.4-5.0); ALKALINE PHOSPHATASE 111 U/L (30-120); ALT (SGPT) 21 U/L (10-68); BILIRUBIN - TOTAL 0.14 mg/dL (0.2-1.3); HCG - QUANTITATIVE (MATERNAL) 0 mIU/mL; LIPASE 78 U/L (73-393); PROTEIN - SERUM 7.6 g/dL (6.4-8.2)
[2019-12-15] MEDS ORDERED: PROAIR HFA8.5 G1 INH (21:09)
== END 2019-12-14 02:53 | disposition left against medical advice (07) ==
LOC: D.ER 01:31
PROVIDERS: Family Medicine
DX: R10.2 Pelvic and perineal pain (principal); D72.829 Elevated white blood cell count, unspecified; I10 Essential (primary) hypertension; J45.909 Unspecified asthma, uncomplicated; Z72.0 Tobacco use; M79.605 Pain in left leg; M79.604 Pain in right leg; N93.9 Abnormal uterine and vaginal bleeding, unspecified

== ENCOUNTER 2019-12-15 19:53 | Emergency (ER) | payer MEDICARE ==
[~2019-12-15] VITALS: Ht 157.5 cm; Wt 109.1 kg
[2019-12-15 21:07] VITALS: Ht 157.5 cm; Wt 109.1 kg
[2019-12-15] MEDS ORDERED: PROAIR HFA8.5 G1 INH (21:09)
[2019-12-15 21:24] LABS: BASOPHILS 0.2 % (0-2); EOSINOPHILS 0.9 % (0-7); HEMATOCRIT 40.2 % (36.0-48.0); HEMOGLOBIN 13.1 g/dL (12-16); IMMATURE GRANULOCYTES 0.3 % (0-5); LYMPHOCYTES 15.1 % (15-50); MCH 28.9 pg (26.0-34.0); MCHC 32.6 g/dL (31.0-37.0); MCV 88.5 fL (80.0-100.0); MEAN PLATELET VOLUME 9.5 fL (7.4-10.4); MONOCYTES 5.6 % (2-11); NEUTROPHILS 77.9 % (40-80); PLATELET COUNT 307 10x3/uL (130-400); RBC 4.54 10x6/uL (4.00-5.40); RDW 13.1 % (11.5-14.5)
[2019-12-15 21:34] LABS: CALC OSMOLALITY 271 mosm/kg (275-300); CALCIUM 8.7 mg/dL (8.5-10.1); CARBON DIOXIDE 27.2 mmol/L (21.0-32.0); CHLORIDE - SERUM 103 mmol/L (98-107); CREATININE - SERUM 0.7 mg/dL (0.6-1.3); GLUCOSE 89 mg/dL (74-106); POTASSIUM - SERUM 3.5 mmol/L (3.5-5.1); SODIUM 137 mmol/L (136-145); eGFR NON AFRICAN AMERICAN > 90 mL/min (90-120)
[2019-12-15 21:35] LABS: UREA NITROGEN 9 mg/dL (7-18)
[2019-12-15 21:41] LABS: ALBUMIN 3.7 g/dL (3.4-5.0); ALKALINE PHOSPHATASE 104 U/L (30-120); ALT (SGPT) 20 U/L (10-68); BILIRUBIN - TOTAL 0.19 mg/dL (0.2-1.3)
[2019-12-15 21:42] LABS: LIPASE 58 U/L (73-393)
[2019-12-15 21:48] LABS: BILIRUBIN NEGATIVE (NEGATIVE); GLUCOSE NEGATIVE (NEGATIVE); KETONE NEGATIVE (NEGATIVE); NITRITE NEGATIVE (NEGATIVE); SPECIFIC GRAVITY 1.025 (1.005-1.020); UROBILINOGEN NORMAL (NORMAL)
[2019-12-15 21:49] LABS: EPITHELIAL CELLS 0-5 /hpf (0-5); RED CELLS - URINE 0-5 /hpf (0-5); WHITE CELLS - URINE 0-5 /hpf (NEGATIVE)
[2019-12-15 21:50] LABS: BACTERIA FEW /hpf (NEGATIVE); HCG URINE NEGATIVE (NEGATIVE)
[2019-12-15 21:50] LABS: WBC 18.2 10x3/uL (4.8-10.8)
[2019-12-16] MEDS ORDERED: FLAGYL500 MG PO (03:46)
[2019-12-16] MEDS ORDERED: PROMETHAZINE W473 ML PO (03:47)
[2019-12-16 03:53] VITALS: BP 121/79
== END 2019-12-16 03:53 | disposition home or self-care (01) ==
LOC: D.ER 19:53
PROVIDERS: Family Medicine
DX: R10.9 Unspecified abdominal pain (principal); N73.9 Female pelvic inflammatory disease, unspecified; N89.8 Other specified noninflammatory disorders of vagina; I10 Essential (primary) hypertension; J45.909 Unspecified asthma, uncomplicated; Z72.0 Tobacco use

== ENCOUNTER 2019-12-27 08:53 | Emergency (ER) | payer MEDICARE ==
[~2019-12-27] VITALS: Ht 157.5 cm; Wt 115.9 kg
[~2019-12-27 08:53] MED LIST changes: +FLAGYL500 MG PO; +PROAIR HFA8.5 G1 INH; +PROMETHAZINE W473 ML PO
[2019-12-27 09:05] VITALS: Ht 157.5 cm; Wt 115.9 kg
[2019-12-27 10:40] VITALS: BP 148/85
== END 2019-12-27 10:45 | disposition home or self-care (01) ==
LOC: D.ER 08:53
DX: A54.9 Gonococcal infection, unspecified (principal); I10 Essential (primary) hypertension; J45.909 Unspecified asthma, uncomplicated; Z72.0 Tobacco use

== ENCOUNTER 2020-04-14 22:23 | Emergency (ER) | payer MEDICARE ==
[~2020-04-14] VITALS: Ht 157.5 cm; Wt 117.9 kg
[2020-04-14 22:25] VITALS: Ht 157.5 cm; Wt 117.9 kg
[2020-04-14 23:08] LABS: BASOPHILS 0.3 % (0-2); EOSINOPHILS 2.6 % (0-7); HEMATOCRIT 39.8 % (36.0-48.0); HEMOGLOBIN 13.1 g/dL (12-16); IMMATURE GRANULOCYTES 0.2 % (0-5); LYMPHOCYTES 30.7 % (15-50); MCH 28.7 pg (26.0-34.0); MCHC 32.9 g/dL (31.0-37.0); MCV 87.1 fL (80.0-100.0); MEAN PLATELET VOLUME 9.9 fL (7.4-10.4); MONOCYTES 6.5 % (2-11); NEUTROPHILS 59.7 % (40-80); PLATELET COUNT 315 10x3/uL (130-400); RBC 4.57 10x6/uL (4.00-5.40); RDW 13.1 % (11.5-14.5); WBC 10.9 10x3/uL (4.8-10.8)
[2020-04-14 23:15] LABS: HCG URINE NEGATIVE (NEGATIVE)
[2020-04-14 23:22] LABS: CALC OSMOLALITY 275 mosm/kg (275-300); CALCIUM 8.8 mg/dL (8.5-10.1); CHLORIDE - SERUM 105 mmol/L (98-107); CREATININE - SERUM 0.7 mg/dL (0.6-1.3); GLUCOSE 98 mg/dL (74-106); POTASSIUM - SERUM 3.7 mmol/L (3.5-5.1); SODIUM 139 mmol/L (136-145); UREA NITROGEN 7 mg/dL (7-18); eGFR NON AFRICAN AMERICAN > 90 mL/min (90-120)
[2020-04-14 23:23] LABS: BILIRUBIN NEGATIVE (NEGATIVE); KETONE NEGATIVE (NEGATIVE); NITRITE NEGATIVE (NEGATIVE); UROBILINOGEN NORMAL mg/dL (< 2)
[2020-04-14 23:24] LABS: BACTERIA MODERATE HPF (NONE SEEN); EPITHELIAL CELLS 0-5 /hpf (0-5); WHITE CELLS - URINE 0-5 HPF (0-4)
[2020-04-14 23:33] LABS: ALBUMIN 3.4 g/dL (3.4-5.0); ALKALINE PHOSPHATASE 104 U/L (30-120); ALT (SGPT) 22 U/L (10-68); AMYLASE - SERUM 46 U/L (25-115); BILIRUBIN - TOTAL 0.05 mg/dL (0.2-1.3); LIPASE 66 U/L (73-393); PROTEIN - SERUM 7.5 g/dL (6.4-8.2); TROPONIN-I < 0.017 ng/mL (0.000-0.060)
[2020-04-14] MEDS ORDERED: LEVOFLOXACIN500 MG PO (23:43)
[2020-04-14] MEDS ORDERED: FLUTICASONE PRO16 GM NASAL (23:43)
[2020-04-15 00:10] VITALS: BP 123/88
== END 2020-04-15 00:13 | disposition home or self-care (01) ==
LOC: D.ER 22:23
PROVIDERS: Family Medicine
DX: J32.9 Chronic sinusitis, unspecified (principal); R04.0 Epistaxis; I10 Essential (primary) hypertension; J45.909 Unspecified asthma, uncomplicated; Z72.0 Tobacco use; R10.9 Unspecified abdominal pain; R11.2 Nausea with vomiting, unspecified

== ENCOUNTER 2020-11-13 04:47 | Emergency (ER) | payer MEDICARE ==
[~2020-11-13] VITALS: Ht 157.5 cm; Wt 124.5 kg
[~2020-11-13 04:47] MED LIST changes: +ALBUTEROL SULF8.5 GM INH; +FLUTICASONE PRO16 GM NASAL; +STERAPRED DS 1010 MG PO
[2020-11-13 04:51] VITALS: BP 152/96; Ht 157.5 cm; Wt 124.5 kg
[2020-11-13] MEDS ORDERED: ULTRAM50 MG PO (05:22)
[2020-11-13] MEDS ORDERED: NAPROSYN500 MG PO (05:22)
== END 2020-11-13 05:27 | disposition home or self-care (01) ==
LOC: D.ER 04:47
DX: S50.11XA Contusion of right forearm, initial encounter (principal); I10 Essential (primary) hypertension; Z72.0 Tobacco use; W01.10XA Fall on same level from slipping, tripping and stumbling with subsequent striking against unspecified object, initial encounter; Y93.9 Activity, unspecified; Y92.9 Unspecified place or not applicable

== ENCOUNTER → 2020-12-03 13:52 | Outpatient (CLI) | payer MEDICARE ==
[2020-11-13 04:51] VITALS: BMI 50.2
[~2020-12-03 13:52] MED LIST changes: +ULTRAM50 MG PO
== END | disposition home or self-care (01) ==
LOC: D.MRI 13:52
PROVIDERS: ATTEND Clinical Nurse Specialist Family Health
DX: M25.531 Pain in right wrist (principal)